=== PATIENT | female | born 1940 | race Caucasian/White ===

== ENCOUNTER 2017-02-02 11:02 | Observation (INO) | payer MEDICARE ==
[~2017-02-02] VITALS: Ht 172.7 cm; Wt 85.1 kg
--- OUTSIDE RECORDS SUMMARY | 2017-02-02 11:07 | XMS REPORT | Continuity of Care Document ---
Author Author Formerly [facility] Address Unknown Phone Unavailable Allergies Medications Problems Date Dx Coded Attending Type Code Diagnosis Diagnosed By 02/04/2015 BRANDON NORTON, CHET Hoyt Ot 250.00 02/04/2015 BRANDON NORTON, CHET Hoyt Ot 272.0 02/04/2015 BRANDON NORTON, CHET [place]t Ot 355.9 02/04/2015 BRANDON NORTON, CHET Hoyt Ot 599.0 02/04/2015 BRANDON NORTON, CHET [place] Ot 733.00 02/04/2015 BRANDON NORTON, CHET H[place] Ot 790.29 02/04/2015 BRANDON NORTON, CHET H[place] Ot 790.6 02/04/2015 BRANDON NORTON, CHET H[place] Ot 427.9 02/04/2015 BRANDON NORTON, CHET Hoty Ot 786.2 02/04/2015 BRANDON NORTON, CHET H[place] Ot 793.19 02/04/2015 BRANDON NORTON, CHET [place] Ot 793.82 02/04/2015 BRANDON NORTON, CHET H[place]t Ot V76.12 02/04/2015 BRANDON NORTON, CHET [place] Ot 611.72 02/20/2015 BRANDON NORTON, CHET [place] Ot 427.0 03/16/2015 BRANDON NORTON, CHET [place] Ot 427.0 03/18/2015 BRANDON NORTON, CHET [place] Ot 433.11 03/18/2015 BRANDON NORTON, CHET [place] Ot 433.31 03/18/2015 BRANDON NORTON, CHET [place] Ot 786.2 03/18/2015 BRANDON NORTON, CHET [place] Ot V76.12 03/27/2015 BRANDON NORTON, CHET [place] Ot 433.11 03/27/2015 BRANDON NORTON, CHET [place] Ot 433.31 03/27/2015 BRANDON NORTON, CHET [place] Ot 786.2 03/27/2015 BRANDON NORTON, CHET Hoyt Ot V76.12 Procedures Results Encounters ACCT No. Visit Date/Time Discharge Status Pt. Type Provider Facility Loc./Unit Complaint [id number] 02/25/2015 08:20:00 2014 23:59:59 CLS Outpatient BRANDON NORTON, [facility] [id number] 02/04/2015 07:59:00 2014 23:59:59 CLS Outpatient BRANDON NORTON, [facility] [id number] 02/24/2014 09:50:00 2013 23:59:59 CLS Outpatient BRANDON NORTON, [facility] [id number] 02/11/2014 13:46:00 2013 23:59:59 CLS Outpatient BRANDON NORTON, [facility] [id number] 02/04/2014 08:31:00 2013 23:59:59 CLS Outpatient BRANDON NORTON, [facility] LAB
[2017-02-02 11:39] VITALS: BP 217/105
[2017-02-02] MEDS ORDERED: ONDANSETRON 2 MG/ML (Z0FRAN) 2 ML VIAL IV PRN (11:40)
[2017-02-02] MEDS ORDERED: PROMETHAZINE HCL INJ 12.5 MG in SODIUM CHLORIDE 25 ML IV PRN (11:40)
[2017-02-02] MEDS ORDERED: ONDANSETRON 4 MG (ZOFRAN) TABLET PO PRN (11:40)
[2017-02-02] MEDS ORDERED: ONDANSETRON 4 MG (ZOFRAN) ORAL DISSOLVE TAB ONE (11:41)
[2017-02-02 11:43] VITALS: BP 217/105
[2017-02-02] MEDS ORDERED: POLYETHYLENE GLYCOL 17 GM (MIRALAX) PACKET PO PRN (12:00)
[2017-02-02] MEDS ORDERED: CALCIUM CARBONATE CHEWABLE 300 MG (TUMS) TABLET PO PRN (12:00)
[2017-02-02] MEDS ORDERED: DOCUSATE SODIUM 100 MG (COLACE) CAP PO PRN (12:00)
[2017-02-02] MEDS ORDERED: MAGNESIUM HYDROXIDE 80MG/ML (MILK OF MAGNESIA) 30 ML UDC PO PRN (12:00)
[2017-02-02] MEDS ORDERED: KETOROLAC 30 MG/ML (TORADOL) 1 ML VIAL IV ONE (12:00)
[2017-02-02] MEDS ORDERED: MAG HYDROX/AL HYDROX/SIMETH 200-200-20/5 ML (MAG-AL PLUS) 30 ML UDC PO PRN (12:00)
[2017-02-02] MEDS ORDERED: SODIUM CHLORIDE FLUSH 3 ML SYR ONE (12:01)
[2017-02-02] MEDS: HYDROmorphone 1 MG/ML (DILAUDID) SYRINGE IV PRN (12:04)
--- NOTE | 2017-02-02 12:13 | History and Physical (E) ---
History & Physical PCP: Chet Greenwood MD CC: Right hip pain, nausea/vomiting HPI Verito Joel is a 76 year old female admitted from clinic 02/02 with intractable right hip pain that has gotten worse over the last several days to the point that she cannot bear any weight. She has also had intractable nausea and vomiting. PCP asked for direct admit because she appeared unwell and he felt outpatient workup would not be successful. Family brought her from clinic in wheelchair. On arrival, she was awake, interactive, but very nauseated and was feeling unwell. Ondansetron was immediately ordered. She is able to relate history. and son contribute. Has had right hip pain off-and-on for the last several months, but started having worse sciatica- type pain in right lower back and buttock radiating down leg, onset Monday and getting worse. PCP had prescribed tramadol that was helping initially but now because of nausea/vomiting, hasn't been able to keep that down. Feels groin pain at times. Denies "lightning strike pain" but feels a burning and numb sensation at times radiating lateral and distal leg. Knee doesn't give out. Has had not had any imaging yet. No back pain per se. Nausea/vomiting started last night. Sudden onset about 2 hours after taking some tramadol. This medication is relatively new to her. No fever or chills. Has vomited 3-4 times at least. No diarrhea. No change in diet. Ate no leftover foods. Hasn't been able to keep down food or fluids today. No sick contacts. hasn't experienced similar symptoms. PMH * Bronchitis * HLD * UTI * Shingles * PAT * HTN * Lichen sclerosis * Hemorrhoids * Diverticulosis * Hiatal hernia * Hayfever PSH * Cataract surgery ALLERGIES: Please see list at end of report. HOME MEDICATIONS: Please see list at end of report. FH Mom with heart disease. Father committed suicide. 3 children, all healthy. SH Lives iwth in [place]. Retired from [employer]. No smoking. No alcohol. No drug use. ROS CONSTITUTION: Denies weight loss or gain. Denies fever or chills. HEENT: No change in vision or hearing. No sores in mouth, sore throat. CV: No chest pain, palpitations. PULM: No cough, shortness of breath, difficulty breathing. GI: Nausea and vomiting that is new, but no constipation, or diarrhea. No blood in stool. : No dysuria. No blood in urine. MS: Per HPI, exam. NEURO: Per HPI, exam. INTEG: No rashes, lesions, or sores. ENDO: No heat or cold intolerance. No polydipsia or polyuria. HEME/LYMPH: No easy bruising or bleeding. No swollen glands. PSYCH: No change in mood or behavior. OBJECTIVE BP 217/105 HR 63 RR 17 SpO2 94% RA Temp 96.0. GEN: Awake, alert, oriented, appears tired and uncomfortable. HEENT: EOMI, clear sclerae, dry oral mucosa. CV: RRR S1 S2 normal with no murmur LUNGS: CTA B ABD: Soft, NT/ND with normal bowel sounds. EXTR: No C/C/E. Normal peripheral pulses. INTEG: No rash. Warm, dry, well-perfused. NEURO: No focal motor neuro deficit. Weight: 84.1 kg LABS: PENDING IMAGING: PENDING ASSESSMENT Verito Joel is a 76 year old female admitted from clinic 02/02 with intractable right hip pain consistent with sciatica except that she has some groin pain as well. She also had intractable nausea/vomiting on admit of uncertain cause but may be due to adverse reaction from tramadol, a new medication she was given for pain. Pain has been ongoing x 4 months but acutely worse in the last few days. PLAN * Intractable right hip pain: Sciatica, by history and exam. Check hip x-ray because of occasional groin pain and because of chronicity of pain. Ketorolac on admit. Acetaminophen, ibuprofen. Consider lido-derm. Hydromorphone for breakthrough pain. * Intractable nausea/vomiting: Adverse effect of narcotics? UTI? Gastroenteritis ? Noted she has not had diarrhea nor history consistent with GE. Got nauseated again after receiving hydromorphone. Ondansetron, promethazine. Hold tramadol. Minimize hydromorphone use. * Dehydration: On the basis of exam. Check labs. IVF bolus x 1 L, maintenance x 1 L. I&O, daily weight. * HTN: BP elevated on admit 217/105. Likely due to pain though has untreated HTN at home. Observe for now. * Medication Adverse Effect: Hold tramadol. Minimize hydromorphone use. * F/E/N: IVF as above. Peripheral IV. Regular diet as tolerated. * Prophylaxis: Enoxaparin * Code Status: Full * Dispo: Observation pending further workup. Copies to: End of Report . PITER ANDRADE MD Feb 02, 2017 12:03
[2017-02-02] MEDS ORDERED: KETOROLAC 30 MG/ML (TORADOL) 1 ML VIAL ONE (12:14)
[2017-02-02 12:17] VITALS: BP 217/105
[2017-02-02 12:19] LABS: BASOPHILS % (AUTO) 0 % (0-2); EOSINOPHILS % (AUTO) 0 % (0-4); LYMPHOCYTES # (AUTO) 1.1 X10^3; MEAN CORPUSCULAR HEMOGLOBIN 28.3 PG (26.0-34.0); MEAN CORPUSCULAR HGB CONC 33.7 g/dL (31.0-37.0); MEAN CORPUSCULAR VOLUME 84 FL (80-100); MEAN PLATELET VOLUME 10.9 FL (6.0-9.5); MONOCYTES # (AUTO) 0.9 X10^3; MONOCYTES % (AUTO) 7 % (3-11); NEUTROPHILS # (AUTO) 10.3 X10^3; NEUTROPHILS % (AUTO) 83 % (51-67); PLATELET COUNT 237 10^3uL (150-450); WHITE BLOOD COUNT 12.32 10^3uL (4.0-11.0)
[2017-02-02 12:31] LABS: ALBUMIN 4.6 g/dL (3.4-5.0); ANION GAP 19.2 MEQ/L (3-15); TOTAL PROTEIN 8.1 g/dL (6.4-8.5)
[2017-02-02] MEDS ORDERED: MULT-955 PO (12:45)
[2017-02-02] MEDS ORDERED: CALC-656 PO (12:46)
[2017-02-02] MEDS ORDERED: CRAN200C2 PO (12:46)
[2017-02-02] MEDS ORDERED: LYSI500T3 PO (12:48)
[2017-02-02 12:51] LABS: ERYTHROCYTE SEDIMENTATION RT* 1 mm/hr (0-23)
--- NOTE | 2017-02-02 15:46 | Diagnostic Imaging Report ---
INDICATION: Right hip pain. EXAMINATION: Frontal view of the pelvis was performed with frontal and crosstable lateral views of the right hip. AVAILABLE COMPARISONS: None. FINDINGS: Enthesophytes of the trochanters are present. The right superior acetabulum, laterally, shows some osseous buttressing and hypertrophy. The hip joint spaces are normal. Sacroiliac joints are normal. Early osteophyte formation of the right femoral head is present. IMPRESSION: Mild degenerative change. No acute abnormality is identified. Dictated by: Dictated on workstation # [id number]
[2017-02-02 16:14] VITALS: BP 157/125
[2017-02-02 16:25] VITALS: BP 198/118
[2017-02-02 18:41] LABS: BILIRUBIN,URINE Negative (Negative); CLARITY,URINE Slightly Cloudy; COLOR,URINE Yellow; GLUCOSE, URINE (UA) Negative (Negative); LEUKOCYTE ESTERASE ,URINE Negative (Negative); UROBILINOGEN,URINE 0.2 mg/dL (0.2-1.0)
[2017-02-02 19:42] LABS: URINE CENTRIFUGED VOLUME 12 mL
[2017-02-02 19:43] LABS: AMORPHOUS SEDIMENT,UR 1+ /HPF
[2017-02-02 20:33] VITALS: BP 167/76
[2017-02-02] MEDS: IBUPROFEN 600 MG (MOTRIN) TAB PO PRN (20:59)
[2017-02-02] MEDS: ACETAMINOPHEN 325 MG TAB (TYLENOL) PO PRN (23:59)
[2017-02-03 00:13] VITALS: BP 170/73
[2017-02-03] MEDS: HYDROmorphone 1 MG/ML (DILAUDID) SYRINGE IV PRN ×4 (02:18→22:29)
[2017-02-03 04:33] VITALS: BP 142/76
[2017-02-03 06:19] LABS: BASOPHILS % (AUTO) 0 % (0-2); EOSINOPHILS # (AUTO) 0.2 10^3uL; EOSINOPHILS % (AUTO) 2 % (0-4); LYMPHOCYTES # (AUTO) 3.3 X10^3; MEAN CORPUSCULAR HEMOGLOBIN 28.4 PG (26.0-34.0); MEAN CORPUSCULAR VOLUME 86 FL (80-100); MEAN PLATELET VOLUME 11.6 FL (6.0-9.5); MONOCYTES # (AUTO) 1.1 X10^3; MONOCYTES % (AUTO) 9 % (3-11); NEUTROPHILS # (AUTO) 7.2 X10^3; NEUTROPHILS % (AUTO) 61 % (51-67); PLATELET COUNT 232 10^3uL (150-450); WHITE BLOOD COUNT 11.85 10^3uL (4.0-11.0)
[2017-02-03 06:30] LABS: ALBUMIN 3.9 g/dL (3.4-5.0); ANION GAP 13.8 MEQ/L (3-15)
[2017-02-03] MEDS: IBUPROFEN 600 MG (MOTRIN) TAB PO PRN ×2 (07:32→14:47)
[2017-02-03 08:21] VITALS: BP 182/86
[2017-02-03] MEDS ORDERED: SODIUM CHLORIDE FLUSH 3 ML SYR ONE (09:23)
[2017-02-03] MEDS: ACETAMINOPHEN 325 MG TAB (TYLENOL) PO PRN (09:25)
[2017-02-03] MEDS: ENOXAPARIN 40 MG/0.4 ML (LOVENOX) SYR SC SCH (09:31)
--- NOTE | 2017-02-03 10:36 | Progress Note (E) ---
Progress Note SUBJECTIVE Overnight, no major issues reported. Pain a bit improved. Taking ibuprofen. ( Got ketorolac on admit which helped.) Discussed with PCP who favored proceeding with MRI. Patient reports feeling much better today. Tolerates exam much batter and can stand unaided. Reports some mild numbness sensation in lower lateral leg and foot. OBJECTIVE Vital Signs Date Time Temp Pulse Resp B/P Pulse Ox O2 Delivery O2 Flow Rate FiO2 02/03/17 08:21 96.8 118 18 182/86 98 02/03/17 04:33 Room air I & O 02/02/17 02/03/17 Cumulative From/Thru 19:00 07:00 02/02/17 11:15 - 02/03/17 06:05 Intake Total 1048 ml 556 ml 1604 ml Output Total 0 ml 1000 ml 1000 ml Balance 1048 ml -444 ml 604 ml GEN: Awake, alert, oriented, appears to be feeling much better. HEENT: EOMI, clear sclerae, dry oral mucosa. CV: RRR S1 S2 normal with no murmur LUNGS: CTA B ABD: Soft, NT/ND with normal bowel sounds. EXTR: No C/C/E. Normal peripheral pulses. INTEG: No rash. Warm, dry, well-perfused. MS: No pain to midline spinal palpation. Some pain to right SI and right posterior buttock palpation (but she just had some pain medication.) NEURO: No focal motor neuro deficit. Normal patellar and ankle reflexes bilaterally. Intact flexion/extension strength bilaterally at hips, knees, ankles. IMAGING 02/02/17 HIP RT 2 VIEW W/PELVIS INDICATION: Right hip pain. EXAMINATION: Frontal view of the pelvis was performed with frontal and crosstable lateral views of the right hip. AVAILABLE COMPARISONS: None. FINDINGS: Enthesophytes of the trochanters are present. The right superior acetabulum, laterally, shows some osseous buttressing and hypertrophy. The hip joint spaces are normal. Sacroiliac joints are normal. Early osteophyte formation of the right femoral head is present. IMPRESSION: Mild degenerative change. No acute abnormality is identified. Lab-Past 14 Days, 35 Results 02/02/17 12:10: Alanine Aminotransferase (ALT/SGPT) 52, Albumin 4.6, Albumin/Globulin Ratio 1.314, Alkaline Phosphatase 85, Anion Gap 19.2H, Aspartate Amino Transf (AST/ SGOT) 28, BUN/Creatinine Ratio 20, Basophils # (Auto) 0.0, Basophils (%) (Auto) 0, Blood Urea Nitrogen 21H, C-Reactive Protein 0.70, Calcium Level 9.8, Calcium/ Ionized Calcium Ratio 4.0, Calculated Osmolality 279L, Carbon Dioxide Level 29, Chloride Level 98, Creatinine 1.03, Eosinophils # (Auto) 0.0, Eosinophils (%) ( Auto) 0, Erythrocyte Sedimentation Rate 1, Estimat Glomerular Filtration Rate 63.2, Estimated GFR (Non- 52.2, Glucose Level 150#H, Hematocrit 50.20H, Hemoglobin 16.9H, Lymphocytes # (Auto) 1.1, Lymphocytes (%) (Auto) 9L, Mean Corpuscular Hemoglobin 28.3, Mean Corpuscular Hemoglobin Concent 33.7, Mean Corpuscular Volume 84, Mean Platelet Volume 10.9H, Monocytes # (Auto) 0.9, Monocytes (%) (Auto) 7, Neutrophils # (Auto) 10.3, Neutrophils (%) (Auto) 83H, Platelet Count 237, Potassium Level 4.1, Red Blood Count 5.98H, Red Cell Distribution Width 14.2, Sodium Level 142, Total Bilirubin 0.8, Total Protein 8.1, White Blood Count 12.32H 02/02/17 18:02: Urine Amorphous Sediment 1+H, Urine Bacteria Rare, Urine Bilirubin Negative, Urine Blood Trace-intactH, Urine Clarity Slightly cloudy, Urine Collection Type Clean catch, Urine Color Yellow, Urine Glucose (UA) Negative, Urine Ketones TraceH, Urine Leukocyte Esterase Negative, Urine Microscopic RBC 2-5, Urine Mucus 1+, Urine Nitrite Negative, Urine Protein 1+H, Urine Specific [place] 1.015, Urine Squamous Epithelial Cells 10-20, Urine Urobilinogen 0.2, Urine WBC 0-2, Urine pH 7.0, Volume Urine Centrifuged 12 ml 02/03/17 05:10: Albumin 3.9, Anion Gap 13.8, Basophils # (Auto) 0.0, Basophils (%) (Auto) 0, Blood Urea Nitrogen 18, Calcium Level 8.8, Carbon Dioxide Level 31H, Chloride Level 103, Creatinine 1.00, Eosinophils # (Auto) 0.2, Eosinophils (%) (Auto) 2, Estimat Glomerular Filtration Rate 65.4, Estimated GFR (Non- 54.1, Glucose Level 88#, Hematocrit 47.00H, Hemoglobin 15.5, Lymphocytes # (Auto ) 3.3, Lymphocytes (%) (Auto) 28, Mean Corpuscular Hemoglobin 28.4, Mean Corpuscular Hemoglobin Concent 33.0, Mean Corpuscular Volume 86, Mean Platelet Volume 11.6H, Monocytes # (Auto) 1.1, Monocytes (%) (Auto) 9, Neutrophils # ( Auto) 7.2, Neutrophils (%) (Auto) 61, Platelet Count 232, Potassium Level 3.9, Red Blood Count 5.45H, Red Cell Distribution Width 14.4, Sodium Level 144, White Blood Count 11.85H, Phosphorus Level 3.5 ASSESSMENT Verito Joel is a 76 year old female admitted from clinic 02/02 with intractable right hip pain consistent with sciatica except that she has some groin pain as well. She also had intractable nausea/vomiting on admit of uncertain cause but may be due to adverse reaction from tramadol, a new medication she was given for pain. Pain has been ongoing x 4 months but acutely worse in the last few days. PLAN * Intractable right hip pain: Sciatica, by history and exam. X-ray showes mild degenerative hip changes. PCP requests to proceed with MRI. Will discuss with radiologist. Ketorolac on admit was helpful. Ibuprofen also helping. Acetaminophen, ibuprofen. Consider lido-derm. Hydromorphone for breakthrough pain. * Intractable nausea/vomiting: Resolved. Likely adverse effect of narcotics. No UTI on UA. Gastroenteritis less likely... noted she has not had diarrhea nor history consistent with GE. Got nauseated again after receiving hydromorphone. Ondansetron, promethazine. Hold tramadol. Minimize hydromorphone use. * Dehydration: On the basis of exam. Check labs. IVF bolus x 1 L, maintenance x 1 L. I&O, daily weight. * HTN: BP elevated on admit 217/105. Likely due to pain though has untreated HTN at home. Observe for now. * Medication Adverse Effect: Hold tramadol. Minimize hydromorphone use. * F/E/N: IVF as above. Peripheral IV. Regular diet as tolerated. * Prophylaxis: Enoxaparin * Code Status: Full * Dispo: Observation pending further workup. Possible discharge 02/03 or 02/04. PITER ANDRADE MD Feb 03, 2017 10:26
[2017-02-03 12:15] VITALS: BP 128/67
[2017-02-03] MEDS ORDERED: SODIUM CHLORIDE FLUSH 3 ML SYR IV SCH (13:10)
--- NOTE | 2017-02-03 14:06 | Diagnostic Imaging Report ---
PROCEDURE: MRI lumbar spine. TECHNIQUE: Multiplanar, multisequence MRI of the lumbar spine was performed without contrast. INDICATION: Right hip pain. Sciatica. AVAILABLE COMPARISONS: None. FINDINGS: The bone marrow is negative for malignant neoplasm and there is no evidence for discitis/osteomyelitis. The conus is normal and no intradural abnormality is identified. L1-L2: Normal. L2-L3: Disc dehydration is present with mild loss of disc height. Mild degenerative marrow changes are present at the endplates, Modic type II. Interval disc bulges diffusely somewhat eccentric right lateral with mild inferior right foraminal stenosis. Mild to moderate decrease in the cross-sectional CSF surface area of the thecal sac. L3-L4 level: Moderately diffusely bulging intervertebral disc with mild bulging into the foramina. Slight ligamenta flava hypertrophy. Moderate to severe decrease in the cross-sectional CSF surface area of the thecal sac. L4-L5 level: Normal disc height and hydration. Mild facet arthropathy is present. Mild diffuse disc bulge. Mild decrease in the cross-sectional CSF surface area of the thecal sac. No compression of the L4 nerve roots in the superior foramina. L5-S1 level: Normal disc height and hydration. No disc protrusion. No L5 or S1 nerve root displacement. Incidental perineural cysts are visible in the right sacral foramina. Visualized SI joints are negative. The abdominal aorta shows mild ectasia with a maximum AP dimension of 2.4 cm. IMPRESSION: 1. Mild to moderate degenerative changes with spinal stenosis at L2-L3 and L3-L4 levels. Dictated by: Dictated on workstation # [id number]
--- NOTE | 2017-02-03 14:06 | Diagnostic Imaging Report ---
PROCEDURE: MRI pelvis without contrast. TECHNIQUE: Multiplanar, multisequence MRI of the pelvis was performed without contrast. INDICATION: Sciatica. AVAILABLE COMPARISONS: None. There is no intrapelvic mass. The uterus is retroverted. Sigmoid diverticula are present. No adenopathy is identified. Sciatic nerves show no impingement. Pyriformis muscles are symmetric. The bone marrow does not show any significant lesion. No evidence for avascular necrosis or neoplasm is identified. No sacroiliitis is identified. No hip joint effusion. No evidence for sacral insufficiency fracture. The endometrial thickness is about 11 mm which is increased for age. IMPRESSION: 1. Endometrial thickening, abnormally increased for age. Pelvic ultrasound may be helpful. 2. No cause of right hip pain or sciatica is identified. 3. Sigmoid diverticula. Dictated by: Dictated on workstation # [id number]
[2017-02-03] MEDS ORDERED: SODIUM CHLORIDE FLUSH 10 ML ONE (14:41)
[2017-02-03] MEDS: LIDOCAINE (LIDODERM) 5% PATCH TOP SCH (15:30)
--- NOTE | 2017-02-03 16:41 | Physical Therapy Evaluation(E) ---
Plan of Care Discharge Recommendations: Home Independently Aware of Dx and Prognosis: Yes Aware of Risk & Benefit: Yes To be Seen: One time only Initial Evaluation Service Date/Time 02/03/17, 15:30 Primary Diagnosis: (1) Right hip pain ICD Code: M25.551 Treatment Diagnosis: (1) Right hip pain ICD Code: M25.551 Onset Date: 02/03/16 Start of Care Date: Feb 03, 2017 Resuscitation Status: Full Code Precaution/Isolation: Standard Precautions Fall Level: No Risk 0-24 Initial Assessment Reason for Rehab: Increase Mobility Pain Level: 1 Pain Location/Comment Right leg pain and sciatica. Prior Level of Function Patient lives at home and is independent with all functional mobility. Rehabilitation Potential: Good Assistive Device: Standard Walker Distance Walked in Feet 60 feet Assist: Independent Gait Description: Decreased [place], Slow Gait Limitations: Pain pain at right lower extremity. Assessment/Goals Initial Transfer Assessment Rolling: Complete [place] Sit-Supine: Complete [place] Sitting Edge of Bed: Complete [place] Supine-Sit: Complete [place] Sit-Stand from Bed: Complete [place] Stand-Sit: Complete [place] Pivot Transfers: Complete [place] Ambulation: Complete [place] Distance Walked in Feet 60 feet with SW. Coding Time In: 1530 Time Out: 1545 Total Minutes: 15 Charges: 60176 Eval< 20 min Rehab G Codes Current Functional Status: [id number] Current Modifier: CH 0% Projected Functional Goal: [id number] Current Modifier: CH 0% Donis Vazquez PT Feb 03, 2017 16:40
[2017-02-03 17:03] VITALS: BP 164/79
[2017-02-03 19:31] VITALS: BP 189/91
[2017-02-03] MEDS: lisINopril 20 MG (PRINIVIL) TABLET PO SCH (20:49)
[2017-02-04 00:14] VITALS: BP 154/73
[2017-02-04] MEDS: IBUPROFEN 600 MG (MOTRIN) TAB PO PRN ×2 (02:10→07:36)
[2017-02-04] MEDS: HYDROmorphone 1 MG/ML (DILAUDID) SYRINGE IV PRN (03:42)
[2017-02-04 04:04] VITALS: BP 141/77
[2017-02-04 08:08] VITALS: BP 154/72
[2017-02-04] MEDS: LIDOCAINE (LIDODERM) 5% PATCH TOP SCH (09:53)
[2017-02-04] MEDS: lisINopril 20 MG (PRINIVIL) TABLET PO SCH ×2 (09:53→09:54)
[2017-02-04] MEDS: ENOXAPARIN 40 MG/0.4 ML (LOVENOX) SYR SC SCH (09:55)
[2017-02-04] MEDS ORDERED: HYDR-3702 PO (11:39)
[2017-02-04] MEDS ORDERED: AC325T PO (11:39)
[2017-02-04] MEDS ORDERED: NAPR220T76 PO (11:39)
[2017-02-04] MEDS ORDERED: LSNP20T PO (11:39)
--- NOTE | 2017-02-04 11:42 | Discharge Instructions (E) ---
Discharge Instructions Instructions * You were evaluated and treated for intractable right lower back and hip pain that was felt to be due to sciatica or due to lumbar spinal causes. MRI of your lumbar spine was performed showing some bulging discs which could be contributing to your pain. The MRI of your pelvis did not show inflammation along the sciatic nerve. You improved with antiinflammatory medication and pain medication. Review your discharge medication list for recommendations to further manage your symptoms. * For breakthrough pain, a course of hydrocodone/acetaminophen has been prescribed. If you experience nausea/vomiting as you did with tramadol, stop this medicine. Do not take this medicine with Tylenol since it also contains acetaminophen. * Follow-up with your primary care doctor in 3-5 days. Discuss options for referral to a back surgeon to discuss whether or not any procedure or surgery may be indicated based on the result of your MRI. You will be sent home with a CD-ROM containing your MRI images. * Physical therapy may be helpful as you recover from your lower back pain. Referral to [facility] was ordered. Call their office on Monday to schedule services. * You were also treated for severe nausea and vomiting. It was felt this was due to and adverse reaction to tramadol. It is recommended you avoid this medication in the future. We added it to your allergy profile at this facility. * You were noted to have elevated blood pressure. This was likely due to aggravation from pain but you also likely have underlying elevated blood pressure. Lisinopril was started this admission and can be continued at discharge. You should have your blood chemistry checked in about 1 week to ensure your sodium and potassium are stable. * Seek further medical attention if you develop severe numbness or weakness in your right leg, if you have bowel or bladder incontinence, severe worsening back pain, or for any other concerns. Activity Instructions As tolerated, but avoid strenuous lifting > 20 pounds for at least 2 weeks. Doctor's Appointment Follow-up with your primary care doctor in 3-5 days. Discuss referral to a back surgeon for further evaluation if needed. Discharge Diet: PITER Barrera MD Feb 04, 2017 11:38
[2017-02-04] MEDS ORDERED: HYDROcodone/APAP 5 MG/325 MG (NORCO) TAB PO PRN (12:00)
[2017-02-04 12:11] VITALS: BP 160/68
--- NOTE | 2017-02-05 20:53 | Discharge Summary (E) ---
Discharge Summary (E) Admit Date/Time Feb 02, 2017 at 11:02 Discharge Date/Time Feb 04, 2017 at 13:22 Admitting Provider Ronnie Andrade MD Primary Care Provider Chet Greenwood MD Attending Provider Ronnie Andrade MD Consulting Provider History and Present Illness Verito Joel is a 76 year old female admitted from clinic 02/02 with intractable right hip pain consistent with sciatica except that she has some groin pain as well. She also had intractable nausea/vomiting on admit of uncertain cause but may be due to adverse reaction from tramadol, a new medication she was given for pain. Pain has been ongoing x 4 months but acutely worse in the last few days. She was treated with supportive care as outlined. MRI L-spine as noted showing some multi-level disc herniation which may be contributing to her symptoms. Pelvis MRI showed no direct sciatic inflammation. She improved significantly and was discharged home with anti-inflammatory and pain regimen. Tramadol was added as an adverse medication reaction. She was instructed to follow-up with PCP to discuss possible referral to back surgeon for further evaluation. She went home with a disc copy of her MRI. Hospital Course and Treatment * Intractable right hip pain: Thought to be sciatica, by history and exam. X- ray showed mild degenerative hip changes. PCP requested to proceed with MRI. L- spine abnormalities as noted, and herniated disc may more likely be the source of her pain. Sciatic nerve did not show inflammation. Gave ketorolac on admit which was helpful. Ibuprofen also helping. Gave lidoderm which helped but did not continue this at discharge. Hydromorphone for breakthrough pain. At discharge, recommended course of naproxen and gave short course of hydrocodone/ acetaminophen. Referred to PT. * Lumbar Disc Herniation L2/3 and L3/4: MRI as noted. Treated pain and inflammation as outlined above. Provided patient with CR-ROM of her MRI images. She will discuss with PCP regarding back surgeon referral for further evaluation and recommendation. * Intractable nausea/vomiting: Resolved. Likely adverse reaction to tramadol. No UTI on UA. Gastroenteritis less likely... noted she has not had diarrhea nor history consistent with GE. Got nauseated again after receiving hydromorphone. Ondansetron, promethazine. Hold tramadol. Minimized hydromorphone use. Gave trial dose of hydrocodone/acetaminophen before discharge which she tolerated, so discharged home with a short course of that. * Medication Adverse Effect: Attributed to tramadol. Held tramadol. Minimized hydromorphone use. Tolerated hydrocodone/acetaminophen use before discharge. * Dehydration: Resolved. On the basis of exam. Check labs. IVF bolus x 1 L, maintenance x 1 L. * HTN: BP elevated on admit 217/105. Likely due to pain though has untreated HTN at home. Started lisinopril. BP improved with this and with pain control. Continued at discharge. * F/E/N: IVF as above. Peripheral IV. Regular diet as tolerated. * Prophylaxis: Enoxaparin * Code Status: Full * Dispo: Observation. Discharged home 02/04. Discharge Physicial Exam General Vital Signs Date Time Temp Pulse Resp B/P Pulse Ox O2 Delivery O2 Flow Rate FiO2 02/04/17 12:11 97.6 69 20 160/68 99 Room air GEN: Awake, alert, oriented, more relaxed and well-rested. HEENT: EOMI, clear sclerae, dry oral mucosa. CV: RRR S1 S2 normal with no murmur LUNGS: CTA B ABD: Soft, NT/ND with normal bowel sounds. EXTR: No C/C/E. Normal peripheral pulses. INTEG: No rash. Warm, dry, well-perfused. MS: No pain to midline spinal palpation. Some pain to right SI and right posterior buttock palpation (but she just had some pain medication.) Able to bear weight though has a limp on the right. Able to stand and ambulate with walker. NEURO: No focal motor neuro deficit. Normal patellar and ankle reflexes bilaterally. Intact flexion/extension strength bilaterally at hips, knees, ankles. No clonus. Laboratory/Radiology Data Laboratory Results-14 Days 02/02/17 12:10: Alanine Aminotransferase (ALT/SGPT) 52, Albumin 4.6, Albumin/Globulin Ratio 1.314, Alkaline Phosphatase 85, Anion Gap 19.2H, Aspartate Amino Transf (AST/ SGOT) 28, BUN/Creatinine Ratio 20, Basophils # (Auto) 0.0, Basophils (%) (Auto) 0, Blood Urea Nitrogen 21H, C-Reactive Protein 0.70, Calcium Level 9.8, Calcium/ Ionized Calcium Ratio 4.0, Calculated Osmolality 279L, Carbon Dioxide Level 29, Chloride Level 98, Creatinine 1.03, Eosinophils # (Auto) 0.0, Eosinophils (%) ( Auto) 0, Erythrocyte Sedimentation Rate 1, Estimat Glomerular Filtration Rate 63.2, Estimated GFR (Non- 52.2, Glucose Level 150#H, Hematocrit 50.20H, Hemoglobin 16.9H, Lymphocytes # (Auto) 1.1, Lymphocytes (%) (Auto) 9L, Mean Corpuscular Hemoglobin 28.3, Mean Corpuscular Hemoglobin Concent 33.7, Mean Corpuscular Volume 84, Mean Platelet Volume 10.9H, Monocytes # (Auto) 0.9, Monocytes (%) (Auto) 7, Neutrophils # (Auto) 10.3, Neutrophils (%) (Auto) 83H, Platelet Count 237, Potassium Level 4.1, Red Blood Count 5.98H, Red Cell Distribution Width 14.2, Sodium Level 142, Total Bilirubin 0.8, Total Protein 8.1, White Blood Count 12.32H 02/02/17 18:02: Urine Amorphous Sediment 1+H, Urine Bacteria Rare, Urine Bilirubin Negative, Urine Blood Trace-intactH, Urine Clarity Slightly cloudy, Urine Collection Type Clean catch, Urine Color Yellow, Urine Glucose (UA) Negative, Urine Ketones TraceH, Urine Leukocyte Esterase Negative, Urine Microscopic RBC 2-5, Urine Mucus 1+, Urine Nitrite Negative, Urine Protein 1+H, Urine Specific [place] 1.015, Urine Squamous Epithelial Cells 10-20, Urine Urobilinogen 0.2, Urine WBC 0-2, Urine pH 7.0, Volume Urine Centrifuged 12 ml 02/03/17 05:10: Albumin 3.9, Anion Gap 13.8, Basophils # (Auto) 0.0, Basophils (%) (Auto) 0, Blood Urea Nitrogen 18, Calcium Level 8.8, Carbon Dioxide Level 31H, Chloride Level 103, Creatinine 1.00, Eosinophils # (Auto) 0.2, Eosinophils (%) (Auto) 2, Estimat Glomerular Filtration Rate 65.4, Estimated GFR (Non- 54.1, Glucose Level 88#, Hematocrit 47.00H, Hemoglobin 15.5, Lymphocytes # (Auto ) 3.3, Lymphocytes (%) (Auto) 28, Mean Corpuscular Hemoglobin 28.4, Mean Corpuscular Hemoglobin Concent 33.0, Mean Corpuscular Volume 86, Mean Platelet Volume 11.6H, Monocytes # (Auto) 1.1, Monocytes (%) (Auto) 9, Neutrophils # ( Auto) 7.2, Neutrophils (%) (Auto) 61, Platelet Count 232, Potassium Level 3.9, Red Blood Count 5.45H, Red Cell Distribution Width 14.4, Sodium Level 144, White Blood Count 11.85H, Phosphorus Level 3.5 IMAGING 02/03/17 MRI LUMBAR SPINE W/O CONTRAST PROCEDURE: MRI lumbar spine. TECHNIQUE: Multiplanar, multisequence MRI of the lumbar spine was performed without contrast. INDICATION: Right hip pain. Sciatica. AVAILABLE COMPARISONS: None. FINDINGS: The bone marrow is negative for malignant neoplasm and there is no evidence for discitis/osteomyelitis. The conus is normal and no intradural abnormality is identified. L1-L2: Normal. L2-L3: Disc dehydration is present with mild loss of disc height. Mild degenerative marrow changes are present at the endplates, Modic type II. Interval disc bulges diffusely somewhat eccentric right lateral with mild inferior right foraminal stenosis. Mild to moderate decrease in the cross-sectional CSF surface area of the thecal sac. L3-L4 level : Moderately diffusely bulging intervertebral disc with mild bulging into the foramina. Slight ligamenta flava hypertrophy. Moderate to severe decrease in the cross-sectional CSF surface area of the thecal sac. L4-L5 level: Normal disc height and hydration. Mild facet arthropathy is present. Mild diffuse disc bulge. Mild decrease in the cross-sectional CSF surface area of the thecal sac. No compression of the L4 nerve roots in the superior foramina. L5-S1 level: Normal disc height and hydration. No disc protrusion. No L5 or S1 nerve root displacement. Incidental perineural cysts are visible in the right sacral foramina. Visualized SI joints are negative. The abdominal aorta shows mild ectasia with a maximum AP dimension of 2.4 cm. IMPRESSION: 1. Mild to moderate degenerative changes with spinal stenosis at L2 -L3 and L3-L4 levels. 02/03/17 MRI PELVIS W/O CONTRAST PROCEDURE: MRI pelvis without contrast. TECHNIQUE: Multiplanar, multisequence MRI of the pelvis was performed without contrast. INDICATION: Sciatica. AVAILABLE COMPARISONS: None. There is no intrapelvic mass. The uterus is retroverted. Sigmoid diverticula are present. No adenopathy is identified. Sciatic nerves show no impingement. Pyriformis muscles are symmetric. The bone marrow does not show any significant lesion. No evidence for avascular necrosis or neoplasm is identified. No sacroiliitis is identified. No hip joint effusion. No evidence for sacral insufficiency fracture. The endometrial thickness is about 11 mm which is increased for age. IMPRESSION: 1. Endometrial thickening, abnormally increased for age. Pelvic ultrasound may be helpful. 2. No cause of right hip pain or sciatica is identified. 3. Sigmoid diverticula. 02/02/17 HIP RT 2 VIEW W/PELVIS INDICATION: Right hip pain. EXAMINATION: Frontal view of the pelvis was performed with frontal and crosstable lateral views of the right hip. AVAILABLE COMPARISONS: None. FINDINGS: Enthesophytes of the trochanters are present. The right superior acetabulum, laterally, shows some osseous buttressing and hypertrophy. The hip joint spaces are normal. Sacroiliac joints are normal. Early osteophyte formation of the right femoral head is present. IMPRESSION: Mild degenerative change. No acute abnormality is identified. Discharge Disposition Discharged home in improved, stable condition. Instructions * You were evaluated and treated for intractable right lower back and hip pain that was felt to be due to sciatica or due to lumbar spinal causes. MRI of your lumbar spine was performed showing some bulging discs which could be contributing to your pain. The MRI of your pelvis did not show inflammation along the sciatic nerve. You improved with antiinflammatory medication and pain medication. Review your discharge medication list for recommendations to further manage your symptoms. * For breakthrough pain, a course of hydrocodone/acetaminophen has been prescribed. If you experience nausea/vomiting as you did with tramadol, stop this medicine. Do not take this medicine with Tylenol since it also contains acetaminophen. * Follow-up with your primary care doctor in 3-5 days. Discuss options for referral to a back surgeon to discuss whether or not any procedure or surgery may be indicated based on the result of your MRI. You will be sent home with a CD-ROM containing your MRI images. * Physical therapy may be helpful as you recover from your lower back pain. Referral to [facility] was ordered. Call their office on Monday to schedule services. * You were also treated for severe nausea and vomiting. It was felt this was due to and adverse reaction to tramadol. It is recommended you avoid this medication in the future. We added it to your allergy profile at this facility. * You were noted to have elevated blood pressure. This was likely due to aggravation from pain but you also likely have underlying elevated blood pressure. Lisinopril was started this admission and can be continued at discharge. You should have your blood chemistry checked in about 1 week to ensure your sodium and potassium are stable. * Seek further medical attention if you develop severe numbness or weakness in your right leg, if you have bowel or bladder incontinence, severe worsening back pain, or for any other concerns. Activity Instructions As tolerated, but avoid strenuous lifting > 20 pounds for at least 2 weeks. Appointments Follow-up with your primary care doctor in 3-5 days. Discuss referral to a back surgeon for further evaluation if needed. Discharge Diet: Regular Discharge Medications New Medications: Hydrocodone Bit/Acetaminophen (Hydrocodon-Acetaminophen 5-325) 1 Each Tablet 1 EACH PO Q4H PRN PAIN #15 Ref 0 TAB Naproxen Sodium (Aleve) 220 Mg Tablet 220 MG PO TID Take 1 tab every 8 hours for 5 days for inflammation, then reduce to every 12 hours as needed. #0 Ref 0 TAB Acetaminophen (Acetaminophen) 325 Mg Tablet 650 MG PO Q6H PRN PAIN #0 Ref 0 TAB Lisinopril (Lisinopril) 20 Mg Tablet 20 MG PO DAILY #30 Ref 0 TAB Continued Medications: Calcium Carbonate/Vitamin D3 (Calcium 500 + D Tablet) 1 Each Tablet 1 EACH PO DAILY TAB Cranberry Extract (Cranberry) 200 Mg Capsule 1 CAP PO BID CAP Lysine (Lysine) 500 Mg Tablet 1 TAB PO DAILY TAB Multivitamin (Multi-Vitamin Daily) 1 Each Tablet 1 EACH PO DAILY TAB Follow up Follow up Referrals: Physical Therapy Service - 02/06/17 with [facility] New Orders: RENAL PROFILE - Within 1 week Discharge Diagnosis See list above. Problems: Copies to: End of Report . RONNIE ANDRADE MD Feb 05, 2017 20:53
== END 2017-02-04 13:22 | disposition home or self-care (01) ==
LOC: MED/SURG 11:02 → UNDOADMIN 11:02 → INTOOBSV 11:02
PROVIDERS: ADMIT Internal Medicine; ATTEND Internal Medicine
DX: M25.551 Pain in right hip (principal); M51.26 Other intervertebral disc displacement, lumbar region; M54.31 Sciatica, right side; E86.0 Dehydration; R11.2 Nausea with vomiting, unspecified; I10 Essential (primary) hypertension; E78.5 Hyperlipidemia, unspecified; T40.4X5A Adverse effect of other synthetic narcotics, initial encounter
CPT/HCPCS: 36415; 72148; 72195; 73502; 80053; 80069; 81003; 81015; 85025; 85652; 86140; A9270; J1170; J1650; J1885; J2550; J7030; 96361; 96365; 96372; 96375; 96376

== ENCOUNTER → 2017-02-09 | Outpatient (CLI) | payer MEDICARE ==
[~2017-02-09] MED LIST: AC325T PO; CALC-656 PO; CRAN200C2 PO; HYDR-3702 PO; LSNP20T PO; LYSI500T3 PO; MULT-955 PO; NAPR220T76 PO
== END ==
LOC: LAB 15:06
PROVIDERS: ATTEND Family Medicine
DX: C56.9 Malignant neoplasm of unspecified ovary (principal)
CPT/HCPCS: 86304

== ENCOUNTER → 2017-02-13 | Outpatient (CLI) | payer MEDICARE ==
--- NOTE | 2017-02-13 15:05 | Diagnostic Imaging Report ---
INDICATION: Thickening of the endometrium per MRI of the lumbar spine. COMPARISON: Pelvic MRI from 02/03/2017. FINDINGS: The uterus measures 7.6 x 3.8 x 5.5 cm. There is anechoic fluid distending the endometrial cavity. Complex irregular exophytic mass lesion is present in the endometrial canal of the lower uterine segment. This irregular masslike lesion measures 2.1 x 0.6 x 1.7 cm. There appears to be vascularity within the margins of this soft tissue mass lesion. There is a well-circumscribed subcentimeter fibroid within the posterior aspect of the uterine body, with maximal dimension of 0.7 cm. Right ovary measures 1.2 x 0.8 x 1.3 cm. The left ovary measures 1.6 x 1.1 x 1.6 cm. Blood flow is seen in both ovaries. No suspicious adnexal mass lesion. IMPRESSION: 1. Irregular polypoid and pedunculated mass within the endometrial canal at the level of the lower uterine segment. This is concerning for endometrial neoplasm. Gynecology consultation is recommended, if not already performed. 2. The endometrial canal located cranial to the mass is distended with fluid, suggesting this mass is at least partially obstructing the endometrial canal. Dictated by: Dictated on workstation # [id number]
== END ==
LOC: RAD 09:39
PROVIDERS: ATTEND Family Medicine
DX: R93.8 Abnormal findings on diagnostic imaging of other specified body structures (principal)
CPT/HCPCS: 76830; 76856

== ENCOUNTER 2017-03-02 09:45 | Outpatient (RCR) | payer MEDICARE ==
--- NOTE | 2017-02-14 14:40 | PT/OT/ST INITIAL EVALUATION ---
Department of Health and Human Services Form Approved [facility] Care Financing Administration OMB No. [id number] PLAN OF CARE/ASSESSMENT FOR OUTPATIENT REHABILITATION (Complete for Initial Claims Only) 1. PATIENT'S NAME Verito Joel 2. ACC # [id number] 3. HICN [id number] 4. PROVIDER NO. [id number] 5. TYPE: PT 6. PRIOR HOSPITALIZATION NA 7. PRIMARY DX Lumbar herniated disk M51.26 Right hip pain M25.551. 8. SECONDARY DX NA 9. ONSET DATE 01/30/2017 10. REFERRAL DATE 02/04/2017 11. SOC. DATE 02/09/2017 12. TIME OF EVAL 9:12 to 10:27 a.m. 12[address] RE[address] PHYSICIAN Dr. Ronnie Coleman 13. CHARGES/UNITS Evaluation 06096 1 unit of electrical stimulation, G0283 2 units of manual therapy 64016 1 unit of Therapeutic exercise [id number] 14. G CODES B0531-MP Goal E1550-QM 15. PRIOR LEVEL OF FUNCTION; PERTINENT HISTORY (Prior therapy results, reason for referral.) S: Prior to therapy the patient did consent to today's evaluation and treatment. The patient is a 76-year-old female referred by Ronnie Coleman MD for a lumbar herniated disk and right hip pain. The patient notes on 01/30/2017, she began experiencing pain in the right lower extremity that did progress to the point she was unable to bear weight on this lower extremity. The patient was hospitalized from 02/01/2017 to 02/04/2017 due to this issue and did undergo diagnostic imaging. Primary Complaint: The patient's primary complaint at this time is burning sensation down the right lower extremity laterally that has also begun to include tingling. She also has pain in the low back. Prior level of function: The patient reported enjoying camping, ambulating without an assistive device and having no limitations in her activities of daily living. Current level of function: The patient is not able to lift over 20 pounds. She cannot lay flat secondary to increased pain, which prevents her from being able to sleep in bed. She is ambulating with the use of a front-wheeled walker due to pain when bearing weight on the right lower extremity. Obstacles to delivery of care: No obstacles were noted during the subjective portion of the evaluation. Therapy History: The patient was seen for 1 visit for this issue while in the hospital. Pain level: Current pain level is 3/10. Max pain is 6 to 7/10. Again, the pain is described as burning starting from the hip going down to the right lateral foot. She also does have pain in the low back. Aggravating factors: The pain is aggravated by lying flat or with transitional movements. Relieving factors: The pain is relieved by flexion and use of ice. Diagnostic testing: The patient did undergo MRI and x-ray imaging, which upon review of report reveals spinal stenosis at L2-3 and L3-4, as well as mild degenerative changes in the right hip. Past medical history: Includes hypertension, HLD, history of UTI, bronchitis, diverticulosis, history of shingles, hiatal hernia, and PAT. Current medications: The patient believes she might have had an allergic reaction to tramadol, which did cause nausea and vomiting, which led to dehydration, in addition to her increased right lower extremity pain. The patient is currently taking hydrocodone every 6 hours and was taking Aleve prior to this. She did use lidocaine patches as needed initially. Activity level: The patient did not report a specific activity level. Personal health rating: She reports health rating as good. Patient's Goal: Patient's goals is to be able to get rid of using her walking and be able to ambulate without pain in order to return to normal function. 16. INITIAL ASSESSMENT/SAFETY PRECAUTIONS/MEDICAL COMPLICATIONS (Level of function at start of care. Be specific, use objective measures, list problems.) O: APPEARANCE, OBSERVATION AND GAIT: Observation of the patient's gait reveals foot-flat positioning on the right lower extremity with uneven step length and step-two gait pattern with the use of front-wheeled walker. The patient requires increased time to transition from sit to supine and supine to sit. PALPATION: Tenderness to palpation at the right SI joint, IT band, and lumbar paraspinals bilaterally. SPECIAL TESTS: The patient has 2+/4 patellar deep tendon reflexes bilaterally, negative slump test for increased nerve tension in the right lower extremity. The patient scores a 24/40 with a 57.5% disability on the Modified Oswestry pain questionnaire. RANGE OF MOTION/FLEXIBILITY: Lumbar extension is limited by 90% with pain reported with this movement. Lumbar flexion is functional with the patient being able to reach below knee level. The patient also demonstrates mild left rotational limitations with lumbar rotation. STRENGTH: Left hip flexion, knee flexion, extension and ankle dorsiflexion is 5/5. Right knee flexion is 4+/5, hip flexion 3+/5 with pain noted in the SI joint region. Knee extension is observed to be 3/5 and ankle dorsiflexion 3/5 on the right. TODAY'S TREATMENT: Today's treatment consisted of educating the patient on the findings of the evaluation and recommended treatment plan. The goal is pain management, therefore the physical therapist performed segmental traction, which did provide the patient with relief and decreased radicular symptoms in the right lower extremity followed by education on lower extremity nerve glides and light stretching into lumbar flexion for the patient to complete at home. The physical therapist then applied electrical stimulation with a moist heat pack to the lumbar spine. The patient did have decreased pain following this treatment. 17. INITIAL POC: (Specify procedures, modalities, short and club licensee goals) A: The patient presents to physical therapy with an acute onset of low back pain and right lower extremity radicular symptoms. The patient has significant range of motion deficits in the lumbar spine, significant muscle tightness, as well as weakness in the right lower extremity. PROGNOSIS: The patient does have a good prognosis due to active prior level of function and motivation to return to this functional level. OUTCOME ASSESSMENT: The patient scores a 57.5% disability on the modified Oswestry pain index, G-code E8868-JQ. JUSTIFICATION FOR LOW COMPLEXITY: The patient has minimal past medical history factors that would increase her pain and limit her participation in therapy. She does have an acute onset of this pain and it is not progressive in nature at this time. INFORMED CONSENT: The diagnosis, prognosis, treatment plan, risks and expected outcomes were discussed with this patient and she is agreeable to today's established plan of care. SHORT TERM GOALS X3 WEEKS: 1. The patient will report independence and compliance with her home exercise program. 2. The patient will report being able to complete all indoor and outdoor ambulation with the use of an assistive device demonstrating improved heel-toe gait pattern with pain no greater than a 3/10 in the low back and right lower extremity. 3. The patient will report a minimum of a 50% improvement in right lower extremity radicular symptoms. FCI GOALS X5 WEEKS: 1. The patient will improve right lower extremity strength to be 5/5 in hip flexion, knee flexion, extension and ankle dorsiflexion. 2. The patient will demonstrate proper trunk stabilization with functional tasks including lifting up to 10 pounds. 3. The patient will improve her Modified Oswestry pain questionnaire disability by a minimum of 10% to demonstrate improved overall function. 4. The patient will report maximum pain level as 2/10 in the low back and right lower extremity in order to further complete daily activities and return to camping. P: Plan to see this patient up to 3 times a week for 5 weeks in order to address right lower extremity radicular symptoms and low back pain. The patient also has significant weakness in the right lower extremity and muscle guarding throughout the lumbar paraspinals resulting in impaired lumbar range of motion. Treatment will include modalities as needed to address pain and muscle tightness including ultrasound, electrical stimulation and iontophoresis. Functional dry needling will also be considered if the other modalities are not beneficial. Manual therapy techniques will be utilized including joint mobilizations, myofascial release, soft tissue and deep tissue massage and manual traction. Therapeutic exercise will emphasize on improving pain free lumbar spine range of motion with progressive strengthening of the lower extremities and trunk stabilization. Gait training will be utilized to improve patient's heel-toe gait pattern. Balance and proprioceptive training will be utilized, in addition to neuromuscular reeducation. Functional training will be utilized to decrease patient's risk of reinjury and emphasize proper body mechanics with functional tasks. The patient was provided a home exercise program and this will be progressed as needed. Thank you for the referral of this patient. 18. FREQUENCY Up to 3 times per week 19. DURATION 5 weeks 20. FUNCTIONAL LEVEL (End of claim period) 21. PHYSICIAN SIGNATURE ? ON FILE OR ENTER HERE: 22. DATE: I certify the need for these services furnished under this plan of care and if for partial hospitalization. 23. CERTIFICATION FROM THROUGH [facility]
== END 2017-03-06 13:06 | disposition home or self-care (01) ==
LOC: PT 09:45
PROVIDERS: ATTEND Internal Medicine
DX: M51.26 Other intervertebral disc displacement, lumbar region (principal); M25.551 Pain in right hip
CPT/HCPCS: 97110; 97140; 97161; G0283; G8978; G8979; 97014